=== PATIENT | male | born 1980 | race African-American/Black ===

== ENCOUNTER 2022-11-11 13:53 | Emergency (ER) | payer MEDICAID, OTHER ==
[~2022-11-11] VITALS: Ht 188 cm; Wt 127.0 kg
[2022-11-11 14:05] VITALS: O2SAT 100
[2022-11-11 15:20] LABS: BASOPHILS % 0.9 % (0.0-2.0); HEMATOCRIT. 43.7 % (42.0-52.0); HEMOGLOBIN. 15.2 g/dL (14.0-18.0); LYMPHOCYTES % 27.7 % (20.0-50.0); MEAN CORPUSCULAR VOLUME 92.1 fL (80.0-94.0); MEAN PLATELET VOLUME 8.4 fl (7.4-10.4); MONOCYTES % 9.6 % (2.0-8.0); NEUTROPHILS % 60.8 % (40.0-76.0); PLATELET 292 x1000/uL (130-400); RED BLOOD CELL COUNT 4.74 mill/uL (4.7-6.1); RED CELL DISTRIBUTION WIDTH 13.9 % (11.6-14.6)
[2022-11-11 15:37] LABS: CHLORIDE 110 mEq/L (98-107)
[2022-11-11 20:16] VITALS: BP 168/98; PULSE 92; RESP 15; TEMP 98.3
[2022-11-11] MEDS ORDERED: NITROGLYCERIN 0.4MG TABLET SL SL PRN (20:45)
== END 2022-11-11 22:28 | disposition left against medical advice (07) ==
LOC: ER 14:23
DX: R07.89 Other chest pain (principal); R94.31 Abnormal electrocardiogram [ECG] [EKG]; I10 Essential (primary) hypertension; E11.9 Type 2 diabetes mellitus without complications; Z88.5 Allergy status to narcotic agent; Z88.6 Allergy status to analgesic agent
CPT/HCPCS: 80053; 82962; 83880; 85025; 84484; 36415; 71045; 93005; 99291; Z7610